=== PATIENT | male | born 1960 | race Caucasian/White ===

== ENCOUNTER 2021-12-19 19:41 | Emergency (ER) | payer MEDICARE ==
[~2021-12-19 19:41] MED LIST: LIPITOR40 MG PO; MIRALAX 238GM238 GM PO; ONDANSETRON HCL4 MG PO; PLAVIX75 MG PO; TOPROL XL 25MG25 MG PO; ZESTRIL2.5 MG PO
== END 2021-12-19 23:05 | disposition home or self-care (01) ==
LOC: FER 19:41
DX: S61.411A Laceration without foreign body of right hand, initial encounter (principal); F17.210 Nicotine dependence, cigarettes, uncomplicated; I10 Essential (primary) hypertension; J44.9 Chronic obstructive pulmonary disease, unspecified; I25.2 Old myocardial infarction; Z23 Encounter for immunization; Z88.5 Allergy status to narcotic agent; W22.8XXA Striking against or struck by other objects, initial encounter; Y92.009 Unspecified place in unspecified non-institutional (private) residence as the place of occurrence of the external cause
CPT/HCPCS: 90471; 90715; J2001

== ENCOUNTER 2021-12-22 23:38 | Emergency (ER) | payer MEDICARE ==
[2021-12-23] MEDS ORDERED: VIBRAMYCIN100 MG PO (00:53)
[2021-12-23] MEDS ORDERED: NORCO 5-325 TA1 EACH PO (00:53)
== END 2021-12-23 01:29 | disposition home or self-care (01) ==
LOC: FER 23:38
DX: S61.411D Laceration without foreign body of right hand, subsequent encounter (principal); L08.9 Local infection of the skin and subcutaneous tissue, unspecified; F17.210 Nicotine dependence, cigarettes, uncomplicated; Z88.5 Allergy status to narcotic agent
CPT/HCPCS: 96372; J0696; J1100